=== PATIENT | female | born 1975 | race Hispanic/Latino ===

== ENCOUNTER → 2016-07-09 | Outpatient (CLI) | payer OTHER ==
--- NOTE | 2016-07-11 13:04 | DEXA ---
AP SPINE L1 - L4 1.549 2.9 2.0 LT FEMUR TOTAL 1.209 1.6 1.2 RT FEMUR TOTAL 1.257 2.0 1.5 TOTAL BODY TOTAL OTHER DUAL FEMUR FRAX* ASSESSMENT Risk factors: Premature menopause, adult fractures. 10 year probability of fracture Major osteoporotic fracture Patient is under 40, unable to calculate fracture. Hip fracture COMMENTS: Normal bone densitometry of the spine. Normal bone densitometry left hip. Normal bone densitometry of the right hip. FOLLOW-UP: Recommendation for the next bone density exam: 5 years. MASON
== END ==
LOC: M WHC 14:36
PROVIDERS: ATTEND Physician Assistant Medical
DX: Z13.828 Encounter for screening for other musculoskeletal disorder (principal)

== ENCOUNTER → 2016-08-08 | Outpatient (CLI) | payer OTHER ==
--- NOTE | 2016-08-08 08:48 | REP ---
Clinical: Hematuria and dysuria. Findings: The bilateral kidneys, ureters, and bladder appear normal. There is no hydroureteronephrosis, perinephric stranding, intra renal or obstructing ureteral calculi. Calcifications within the pelvis are stable and compatible with phleboliths. Liver, spleen, pancreas, gallbladder, and bilateral adrenal glands are normal. The enteric system is without obstruction or acute inflammatory process. Normal terminal ileum and appendix are identified in the right lower quadrant. Pelvis demonstrates prior hysterectomy. No pelvic fluid or ascites. No adenopathy. No obvious mass lesion. Abdominal aorta without aneurysm. Musculoskeletal structures are intact. Lung bases are clear. Impression: Normal noncontrast CT of the abdomen and pelvis. Signed by Inder Prakash MD 08/08/2016 08:39 A
== END ==
LOC: M RAD 07:56
PROVIDERS: ATTEND Family Medicine
DX: R10.2 Pelvic and perineal pain (principal); R30.0 Dysuria